=== PATIENT | male | born 1965 | race Caucasian/White ===

== ENCOUNTER 2021-02-14 00:41 | Day surgery (SDC) | payer BC, SELFPAY ==
[2021-02-03 12:44] VITALS: BMI 36.6
[2021-02-14 06:21] VITALS: BP 150/86; RESP 18; TEMP 36.4; O2SAT 96; BMI 35.6
[2021-02-14] MEDS: LACTATED RINGERS 1,000 ML 150 ML IV CONT (06:37)
--- NOTE | 2021-02-14 07:23 | WPDGICN ---
Assessment and Plan Assessment and plan (1) History of colon polyps: Code(s): Z86.010 - Personal history of colonic polyps Status: Acute Assessment and Plan: Patient has a history of colon polyps. For this reason surveillance colonoscopy is recommended now and at intervals in the future. GI Consult Note Consult date/time: 02/14/21 07:23 HPI: Kevon Esquivel is a 55 year old male Presents for screening colonoscopy. Patient has a history of colon polyps identified by colonoscopy in 2017. Patient reports that he occasionally will have bright red blood per rectum with wiping. Additionally has occasional loose diarrhea stools. He denies any significant abdominal pain. His weight has remained stable. He presents today for neoplasia screening because of his prior history of colon polyps. Review of Systems Review of Systems: All systems reviewed & are unremarkable except as noted in HPI and below PMFSH Past Medical History Medical History (Updated 02/14/21 @ 07:25 by Lonnie Desai MD) Hypertension GT (obstructive sleep apnea) Social History Social History Smoking packs per day: 1 Smoking cigarettes per day: 20.0 Smoking status: Former smoker Tobacco type: cigarettes Alcohol use details: [employer] Substance use: former Substance use type: former substance user and marijuana Living arrangements: with family Spiritual care concerns: No Meds Home Medications and Allergies Home Medications Medication Instructions Recorded Confirmed Type amlodipine 5 mg PO DAILY 02/03/21 02/14/21 History losartan 100 mg PO DAILY 02/03/21 02/14/21 History Allergies Allergy/AdvReac Type Severity Reaction Status Date / Time No Known Allergies Allergy Verified 02/14/21 06:19 Vital Signs Vital Signs - 24 hr 02/14/21 06:21 Temperature 97.6 F Respiratory Rate 18 Blood Pressure 150/86 H Pulse Oximetry 96 Exam Narrative: Physical exam reveals patient be alert. Vital signs stable. HEENT exam is unremarkable. Patient is anicteric. Lungs are clear to auscultation and percussion. Heart is without murmur or extra sounds. Abdominal exam Reveals his abdomen to be obese. bowel sounds are present soft nontender with no organomegaly. Digital external rectal exam is normal.
--- NOTE | 2021-02-14 07:25 | WPDANESEPPF ---
Anes - Initial Pre Proc Eval Procedure: Operation Date: 02/14/21 07:30 Proposed Procedures p Screening Colonoscopy - Lonnie Desai MD Date/Time: 02/14/21 07:25 Surgeon: Lonnie Desai MD Pre Op Diagnosis: hx of colon polyps Patient Data Age: 55 Gender: M Height: 1.83 m Weight: 119.3 kg Last Vital Signs Temp 97.6 F 02/14/21 06:21 Resp 18 02/14/21 06:21 BP 150/86 H 02/14/21 06:21 Pulse Ox 96 02/14/21 06:21 Allergies Allergy/AdvReac Type Severity Reaction Status Date / Time No Known Allergies Allergy Verified 02/14/21 06:19 Home Medications Medication Instructions Recorded Confirmed Type amlodipine 5 mg PO DAILY 02/03/21 02/14/21 History losartan 100 mg PO DAILY 02/03/21 02/14/21 History Patient hx anesthesia problems: none Family hx anesthesia problems: none Results Review: All pre-operative results and documents have been reviewed as part of the pre-operative evaluation. [facility] Past Medical History Medical History (Updated 02/14/21 @ 07:25 by Lonnie Desai MD) Hypertension GT (obstructive sleep apnea) Social History Social History Smoking packs per day: 1 Smoking cigarettes per day: 20.0 Smoking status: Former smoker Tobacco type: cigarettes Alcohol use details: [employer]INK[employer] Substance use: former Substance use type: former substance user and marijuana Living arrangements: with family Spiritual care concerns: No Anes - Eval Final PreProcedure Day of Procedure 02/14/21 07:25 Patient weight: morbidly obese Heart: regular rate and rhythm Lungs: clear to auscultation Airway: Mallampati scale class III Neurological: alert and oriented Last oral intake: >/= 8 hours ASA classification: III Emergent: no Anesthetic plan: proceed Anesthesia type and monitoring: general GIVS and standard monitoring Results Review: All pre-operative results and documents have been reviewed as part of the pre-operative evaluation. Informed Consent: The patient's anesthetic plan and its attendant risks and benefits were discussed with the patient/family/POA. Questions were solicited and answers provided to the satisfaction of the patient/family/POA.
[2021-02-14] MEDS: SIMETHICONE ORAL SUSPENSION 20 MG/0.3 ML 30 ML BOTTLE 0.6 ML IRRIGATION (07:39)
[2021-02-14 07:49] VITALS: BP 104/70; PULSE 81; RESP 25; O2SAT 96
[2021-02-14 07:59] VITALS: BP 109/72; PULSE 71; RESP 22; O2SAT 97
[2021-02-14 08:09] VITALS: BP 112/75; PULSE 69; RESP 22; O2SAT 98
== END 2021-02-14 08:15 | disposition home or self-care (01) ==
PROVIDERS: PCP Nurse Practitioner Family; Visit Provider Internal Medicine Gastroenterology
PROC: 0DJD8ZZ Inspection of Lower Intestinal Tract, Via Natural or Artificial Opening Endoscopic (ICD-10-PCS; CPT 45378; principal; 2021-02-14 07:30)
DX: Z12.11 Encounter for screening for malignant neoplasm of colon (principal); Z86.010 Personal history of colon polyps; K57.30 Diverticulosis of large intestine without perforation or abscess without bleeding; K64.8 Other hemorrhoids; I10 Essential (primary) hypertension; Z87.891 Personal history of nicotine dependence; G47.33 Obstructive sleep apnea (adult) (pediatric); E66.9 Obesity, unspecified; Z68.35 Body mass index [BMI] 35.0-35.9, adult
CPT/HCPCS: 45378; J2001; J2704; J7120